=== PATIENT | female | born 1965 | race African-American/Black ===

== ENCOUNTER 2017-05-18 15:09 | Emergency (ER) | payer MEDICARE, MEDICAID ==
[~2017-05-18] VITALS: Ht 165.1 cm; Wt 109.0 kg
[~2017-05-18 15:09] MED LIST: ALBU18HF2; ATOR10TA69 PO; AZIT500T5 PO; CODE118S2 PO; FLUO20CA33 PO; HYDR10TA PO; IPRA3AMP9; LORA1TAB PO; OMEP20CA10 PO; P20; SIMV10TA6 PO
[2017-05-18] MEDS ORDERED: KETOROLAC 30MG/ML VIAL IV STA (15:37)
[2017-05-18] MEDS ORDERED: ONDANSETRON HCL 4MG/2ML VIAL IV STA (15:37)
[2017-05-18] MEDS ORDERED: SODIUM CHLORIDE 0.9% 1,000 ML IV ONE (15:37)
[2017-05-18] MEDS ORDERED: IPRATROPIUM/ALBUTEROL 0.5-3(2.5)MG/3ML NEB HHN ONE (15:45)
[2017-05-18 16:06] LABS: CLARITY URINE CLEAR (CLEAR); COLOR URINE YELLOW (YELLOW); KETONES URINE NEGATIVE (NEGATIVE); LEUKOCYTE ESTERASE URINE TRACE (NEGATIVE); NITRITE URINE NEGATIVE (NEGATIVE); OCCULT BLOOD URINE NEGATIVE (NEGATIVE); PH URINE 6.5 (4.5-8.0); PROTEIN URINE NEGATIVE (NEGATIVE); SPECIFIC GRAVITY URINE 1.015 (1.005-1.030); UROBILINOGEN URINE 0.2 E.U./dL (0.2-1.0)
[2017-05-18 16:21] LABS: HEMATOCRIT. 42.5 % (36.0-48.0); HEMOGLOBIN. 14.4 g/dL (12.0-16.0); MEAN CORPUSCULAR HEMOGLOBIN 30.6 pg (28.0-32.0); MEAN CORPUSCULAR VOLUME 90.1 fL (81.0-99.0); MEAN PLATELET VOLUME 9.1 fl (7.4-10.4); PLATELET 226 x1000/uL (130-400); RED BLOOD CELL COUNT 4.71 mill/uL (4.2-5.4); RED CELL DISTRIBUTION WIDTH 14.1 % (11.6-14.6)
[2017-05-18 16:24] LABS: PROTHROMBIN TIME 10.7 sec (9.4-11.6)
[2017-05-18 16:31] LABS: CHLORIDE 104 mEq/L (98-107)
[2017-05-18 16:34] LABS: HCG SCREEN NEGATIVE
[2017-05-18 16:45] LABS: PLATELET ESTIMATE NORMAL
[2017-05-18] MEDS ORDERED: IBUPROFEN 600MG TABLET PO ONE (20:15)
[2017-05-18] MEDS ORDERED: GUAIFENESIN 200MG/10ML SUGAR FREE UDC PO ONE (20:45)
[2017-05-18 20:49] VITALS: BP 121/66
== END 2017-05-18 21:05 | disposition home or self-care (01) ==
LOC: ER 15:52
DX: J06.9 Acute upper respiratory infection, unspecified (principal); R19.7 Diarrhea, unspecified; J45.909 Unspecified asthma, uncomplicated; F32.9 Major depressive disorder, single episode, unspecified; I10 Essential (primary) hypertension; K21.9 Gastro-esophageal reflux disease without esophagitis; J98.11 Atelectasis; E11.9 Type 2 diabetes mellitus without complications; E78.00 Pure hypercholesterolemia, unspecified; K76.0 Fatty (change of) liver, not elsewhere classified
CPT/HCPCS: 36415; 71045; 74176; 80053; 81001; 83690; 84484; 84703; 85025; 85610; 87804; 93005; 96361; 96374; 96375; 99285; J1885; J2405; J7030; J7620

== ENCOUNTER 2017-09-26 12:38 | Emergency (ER) | payer MEDICARE, MEDICAID ==
[~2017-09-26] VITALS: Ht 167.6 cm; Wt 105.0 kg
[2017-09-26] MEDS ORDERED: IBUPROFEN 600MG TABLET PO ONE (13:30)
[2017-09-26 16:49] VITALS: BP 133/71
== END 2017-09-26 17:07 | disposition home or self-care (01) ==
LOC: ER 14:23
DX: M17.11 Unilateral primary osteoarthritis, right knee (principal)
CPT/HCPCS: 73562; 81025; 99284

== ENCOUNTER 2018-07-20 18:54 | Emergency (ER) | payer MEDICARE, MEDICAID ==
[~2018-07-20] VITALS: Ht 165.1 cm; Wt 109.0 kg
[~2018-07-20 18:54] MED LIST changes: -ALBU18HF2; -AZIT500T5 PO; -FLUO20CA33 PO; -HYDR10TA PO; -LORA1TAB PO; -P20; -SIMV10TA6 PO
[2018-07-20] MEDS ORDERED: SODIUM CHLORIDE 0.9% 1,000 ML IV ONE (20:54)
[2018-07-20] MEDS ORDERED: MECLIZINE 25MG TABLET PO ONE (21:00)
[2018-07-20] MEDS ORDERED: NITROGLYCERIN OINT 1GM/INCH UDPKT TD ONE (21:00)
[2018-07-20] MEDS ORDERED: ASPIRIN 325MG EC TABLET PO ONE (21:00)
[2018-07-20 21:12] LABS: CHLORIDE 108 mEq/L (98-107)
[2018-07-20 21:16] LABS: PROTHROMBIN TIME 10.2 sec (9.6-11.0)
[2018-07-20 21:32] LABS: BASOPHILS % 0.5 % (0.0-2.0); EOSINOPHILS % 1.5 % (0.0-5.0); HEMATOCRIT. 42.6 % (36.0-48.0); HEMOGLOBIN. 14.6 g/dL (12.0-16.0); LYMPHOCYTES % 25.2 % (20.0-50.0); MEAN CORPUSCULAR HEMOGLOBIN 30.7 pg (28.0-32.0); MEAN CORPUSCULAR VOLUME 89.4 fL (81.0-99.0); MEAN PLATELET VOLUME 8.8 fl (7.4-10.4); NEUTROPHILS % 64.8 % (40.0-76.0); PLATELET 276 x1000/uL (130-400); RED BLOOD CELL COUNT 4.76 mill/uL (4.2-5.4); RED CELL DISTRIBUTION WIDTH 14.4 % (11.6-14.6)
[2018-07-21 00:10] VITALS: BP 130/63
== END 2018-07-21 00:22 | disposition short-term general hospital (02) ==
LOC: ER 18:54 → CANBEDREQ 07-21 00:24
DX: R07.9 Chest pain, unspecified (principal); R42 Dizziness and giddiness; F32.9 Major depressive disorder, single episode, unspecified; E11.9 Type 2 diabetes mellitus without complications; K21.9 Gastro-esophageal reflux disease without esophagitis; I10 Essential (primary) hypertension; I69.954 Hemiplegia and hemiparesis following unspecified cerebrovascular disease affecting left non-dominant side
CPT/HCPCS: 36415; 70450; 71045; 80053; 83880; 84443; 84484; 85025; 85610; 93005; 96360; 96361; 99285; J7030; J8597

== ENCOUNTER 2021-11-02 12:18 | Emergency (ER) | payer MEDICARE, MEDICAID ==
[~2021-11-02] VITALS: Ht 165.1 cm; Wt 118.0 kg
[~2021-11-02 12:18] MED LIST changes: -OMEP20CA10 PO; +OMEP20CA14 PO
[2021-11-02] MEDS ORDERED: ACETAMINOPHEN 325MG TABLET PO ONE (13:00)
[2021-11-02] MEDS ORDERED: SODIUM CHLORIDE 0.9% 500 ML IV ONE (13:00)
[2021-11-02 13:04] LABS: BASOPHILS % 0.5 % (0.0-2.0); EOSINOPHILS % 1.9 % (0.0-5.0); HEMATOCRIT. 44.2 % (36.0-48.0); HEMOGLOBIN. 14.9 g/dL (12.0-16.0); LYMPHOCYTES % 23.1 % (20.0-50.0); MEAN CORPUSCULAR HEMOGLOBIN 30.4 pg (28.0-32.0); MEAN CORPUSCULAR VOLUME 90.1 fL (81.0-99.0); MEAN PLATELET VOLUME 9.8 fl (7.4-10.4); MONOCYTES % 6.5 % (2.0-8.0); PLATELET 245 x1000/uL (130-400); RED CELL DISTRIBUTION WIDTH 14.5 % (11.6-14.6)
[2021-11-02 13:11] LABS: CHLORIDE 105 mEq/L (98-107)
[2021-11-02 13:20] LABS: ETHANOL BLOOD < 10 mg/dL
[2021-11-02 13:59] LABS: *AMPHETAMINES SCREEN URINE NEGATIVE (NEGATIVE); *BARBITURATES SCREEN URINE NEGATIVE (NEGATIVE); *BENZODIAZEPINES SCREEN URINE NEGATIVE (NEGATIVE); *COCAINE SCREEN URINE NEGATIVE (NEGATIVE); CANNABINOID URINE SCREEN NEGATIVE (NEGATIVE); METHADONE URINE SCREEN NEGATIVE (NEGATIVE); OPIATES URINE SCREEN NEGATIVE (NEGATIVE); PHENCYCLIDINE URINE SCREEN NEGATIVE (NEGATIVE)
[2021-11-02] MEDS ORDERED: MECLIZINE 25MG TABLET PO NR (15:00)
[2021-11-02] MEDS ORDERED: ACET-2708 MT (17:05)
[2021-11-02] MEDS ORDERED: ONDA4TAB50 MT (17:05)
[2021-11-02] MEDS ORDERED: KETOROLAC 60MG/2ML VIAL IM ONE (17:15)
[2021-11-02] MEDS ORDERED: ASPIRIN 81MG TABLET PO ONE (17:15)
[2021-11-02 17:36] VITALS: BP 137/72
== END 2021-11-02 17:40 | disposition home or self-care (01) ==
LOC: ER 12:44
DX: R07.89 Other chest pain (principal); J32.9 Chronic sinusitis, unspecified; F32.9 Major depressive disorder, single episode, unspecified; K21.9 Gastro-esophageal reflux disease without esophagitis; E78.00 Pure hypercholesterolemia, unspecified; I10 Essential (primary) hypertension; Z86.73 Personal history of transient ischemic attack (TIA), and cerebral infarction without residual deficits; Z98.890 Other specified postprocedural states; Z20.822 Contact with and (suspected) exposure to COVID-19
CPT/HCPCS: 36415; 70450; 71045; 80053; 80305; 80320; 83690; 83880; 84484; 85025; 87426; 93005; 96360; 96372; 99284; C9803; J1885; J7040; J8597; G0480

== ENCOUNTER 2021-11-26 14:52 | Emergency (ER) | payer MEDICAID, MEDICARE ==
[~2021-11-26] VITALS: Ht 165.1 cm; Wt 118.0 kg
[~2021-11-26 14:52] MED LIST changes: +ACET-2708 MT; +ONDA4TAB50 MT
[2021-11-26] MEDS ORDERED: KETOROLAC 30MG/ML VIAL IV STA (18:19)
[2021-11-26] MEDS ORDERED: ONDANSETRON HCL 4MG/2ML INJ IV STA (18:19)
[2021-11-26] MEDS ORDERED: SODIUM CHLORIDE 0.9% 1,000 ML IV ONE (18:30)
[2021-11-26 18:54] LABS: BASOPHILS % 0.6 % (0.0-2.0); EOSINOPHILS % 1.2 % (0.0-5.0); HEMATOCRIT. 48.5 % (36.0-48.0); HEMOGLOBIN. 16.8 g/dL (12.0-16.0); LYMPHOCYTES % 27.9 % (20.0-50.0); MEAN CORPUSCULAR HEMOGLOBIN 30.5 pg (28.0-32.0); MEAN CORPUSCULAR VOLUME 88.2 fL (81.0-99.0); MEAN PLATELET VOLUME 8.7 fl (7.4-10.4); MONOCYTES % 7.8 % (2.0-8.0); NEUTROPHILS % 62.5 % (40.0-76.0); PLATELET 303 x1000/uL (130-400); RED CELL DISTRIBUTION WIDTH 13.7 % (11.6-14.6)
[2021-11-26 19:04] LABS: CHLORIDE 101 mEq/L (98-107)
[2021-11-26 19:13] LABS: CLARITY URINE CLEAR (CLEAR); COLOR URINE YELLOW (YELLOW); KETONES URINE TRACE (NEGATIVE); LEUKOCYTE ESTERASE URINE NEGATIVE (NEGATIVE); NITRITE URINE NEGATIVE (NEGATIVE); OCCULT BLOOD URINE NEGATIVE (NEGATIVE); PROTEIN URINE NEGATIVE (NEGATIVE); SPECIFIC GRAVITY URINE 1.013 (1.005-1.030)
[2021-11-26] MEDS ORDERED: METO-293 MT (19:30)
[2021-11-26] MEDS ORDERED: OMEP40CA20 MT (19:30)
[2021-11-26 21:00] VITALS: BP 137/88
== END 2021-11-26 21:00 | disposition home or self-care (01) ==
LOC: ER 14:52
DX: R10.9 Unspecified abdominal pain (principal); F32.9 Major depressive disorder, single episode, unspecified; F41.9 Anxiety disorder, unspecified; E11.9 Type 2 diabetes mellitus without complications; K21.9 Gastro-esophageal reflux disease without esophagitis; E78.00 Pure hypercholesterolemia, unspecified; Z86.73 Personal history of transient ischemic attack (TIA), and cerebral infarction without residual deficits; Z98.890 Other specified postprocedural states
CPT/HCPCS: 36415; 80053; 81003; 83690; 85025; 93005; 96361; 96374; 96375; 99291; J1885; J2405; J7030; Z7610

== ENCOUNTER 2022-04-27 19:28 | Emergency (ER) | payer MEDICARE, MEDICAID ==
[~2022-04-27] VITALS: Ht 165.1 cm; Wt 118.0 kg
[~2022-04-27 19:28] MED LIST changes: +METO-293 MT; +OMEP40CA20 MT
[2022-04-27 21:41] LABS: BASOPHILS % 0.6 % (0.0-2.0); EOSINOPHILS % 1.6 % (0.0-5.0); HEMATOCRIT. 43.1 % (36.0-48.0); HEMOGLOBIN. 14.5 g/dL (12.0-16.0); LYMPHOCYTES % 29.6 % (20.0-50.0); MEAN CORPUSCULAR HEMOGLOBIN 30.3 pg (28.0-32.0); MEAN CORPUSCULAR VOLUME 90.3 fL (81.0-99.0); MEAN PLATELET VOLUME 8.5 fl (7.4-10.4); MONOCYTES % 7.1 % (2.0-8.0); NEUTROPHILS % 61.1 % (40.0-76.0); PLATELET 262 x1000/uL (130-400); RED BLOOD CELL COUNT 4.78 mill/uL (4.2-5.4); RED CELL DISTRIBUTION WIDTH 14.3 % (11.6-14.6)
[2022-04-27 21:57] LABS: CHLORIDE 107 mEq/L (98-107)
[2022-04-27] MEDS ORDERED: METOCLOPRAMIDE HCL 10MG/2ML VIAL IM ONE (23:30)
[2022-04-28] MEDS ORDERED: METO5TAB86 MT (00:09)
[2022-04-28 00:35] VITALS: BP 157/72
== END 2022-04-28 00:38 | disposition home or self-care (01) ==
LOC: ER 19:28
DX: B34.9 Viral infection, unspecified (principal); R19.7 Diarrhea, unspecified; E78.00 Pure hypercholesterolemia, unspecified; I10 Essential (primary) hypertension; Z79.899 Other long term (current) drug therapy; Z86.73 Personal history of transient ischemic attack (TIA), and cerebral infarction without residual deficits
CPT/HCPCS: 36415; 71045; 80053; 83880; 84484; 85025; 93005; 96372; 99283; J2765; 99284

== ENCOUNTER 2022-07-03 17:10 | Emergency (ER) | payer MEDICARE, MEDICAID ==
[~2022-07-03] VITALS: Ht 165.1 cm; Wt 116.0 kg
[~2022-07-03 17:10] MED LIST changes: +METO5TAB86 MT
[2022-07-03 17:51] LABS: BASOPHILS % 0.5 % (0.0-2.0); EOSINOPHILS % 2.3 % (0.0-5.0); HEMATOCRIT. 43.3 % (36.0-48.0); HEMOGLOBIN. 14.7 g/dL (12.0-16.0); MEAN CORPUSCULAR HEMOGLOBIN 30.7 pg (28.0-32.0); MEAN CORPUSCULAR VOLUME 90.1 fL (81.0-99.0); MEAN PLATELET VOLUME 8.4 fl (7.4-10.4); MONOCYTES % 7.3 % (2.0-8.0); NEUTROPHILS % 66.9 % (40.0-76.0); PLATELET 301 x1000/uL (130-400); RED BLOOD CELL COUNT 4.81 mill/uL (4.2-5.4); RED CELL DISTRIBUTION WIDTH 14.1 % (11.6-14.6)
[2022-07-03 18:01] LABS: PARTIAL THROMBOPLASTIN TIME 27.5 sec (23.4-31.0); PROTHROMBIN TIME 10.5 sec (9.6-11.0)
[2022-07-03 18:05] LABS: CHLORIDE 105 mEq/L (98-107)
[2022-07-03 23:39] LABS: CLARITY URINE CLEAR (CLEAR); COLOR URINE YELLOW (YELLOW); KETONES URINE NEGATIVE (NEGATIVE); LEUKOCYTE ESTERASE URINE NEGATIVE (NEGATIVE); NITRITE URINE NEGATIVE (NEGATIVE); OCCULT BLOOD URINE NEGATIVE (NEGATIVE); PH URINE 6.5 (4.5-8.0); PROTEIN URINE NEGATIVE (NEGATIVE); SPECIFIC GRAVITY URINE 1.007 (1.005-1.030); UROBILINOGEN URINE 0.2 E.U./dL (0.2-1.0)
[2022-07-04 00:02] VITALS: BP 150/88
[2022-07-04] MEDS ORDERED: ONDANSETRON HCL 4MG/2ML INJ IV ONE (00:30)
[2022-07-04] MEDS ORDERED: PANTOPRAZOLE SODIUM 40 MG/VIAL IV ONE (00:30)
[2022-07-04] MEDS ORDERED: ONDA4TAB50 PO (03:30)
[2022-07-04] MEDS ORDERED: IBUP-2028 MT (03:30)
== END 2022-07-04 04:00 | disposition home or self-care (01) ==
LOC: ER 17:10
DX: R10.13 Epigastric pain (principal); R11.0 Nausea; F41.9 Anxiety disorder, unspecified; F32.9 Major depressive disorder, single episode, unspecified; E78.00 Pure hypercholesterolemia, unspecified; I10 Essential (primary) hypertension; Z79.899 Other long term (current) drug therapy
CPT/HCPCS: 36415; 71045; 74176; 80053; 81003; 82962; 83690; 84484; 85025; 85610; 85730; 93005; 96374; 96375; 99285; C9113; J2405